=== PATIENT | female | born 1970 | race Two or more races ===

== ENCOUNTER 2020-07-22 15:35 | Emergency (ER) | payer OTHER ==
[~2020-07-22] VITALS: Ht 157.5 cm; Wt 59.0 kg
[2020-07-22 15:44] VITALS: BP 144/109
[2020-07-22 16:09] LABS: Urine Bacteria MANY /hpf (None Seen); Urine Blood Negative /uL (Negative); Urine Specific Gravity 1.007 (1.001-1.035); Urine WBC 19 /hpf (0 - 5)
[2020-07-22 16:37] LABS: Basophils # (auto) 0 10 ^3/uL (0-0.2); Basophils % (auto) 0.7 % (0.0-2.0); Eosinophils # (auto) 0.1 10 ^3/uL (0-0.8); Eosinophils % (auto) 1.8 % (0.0-7.0); Hematocrit 38.9 % (36.0-46.0); Hemoglobin 13.3 g/dL (12.2-16.2); Lymphocytes # (auto) 1.7 10 ^3/uL (0.4-5.4); Lymphocytes % (auto) 35.7 % (10.0-50.0); Mean Corpuscular Hemoglobin 30.8 pg (28.0-32.0); Mean Corpuscular Hgb Conc. 34.1 g/dL (32.0-36.0); Mean Corpuscular Volume 90.4 fL (80.0-100.0); Monocytes # (auto) 0.3 10 ^3/uL (0-1.3); Monocytes % (auto) 6.7 % (0.0-12.0); Neutrophils # (auto) 2.6 10 ^3/uL (1.6-8.6); Neutrophils % (auto) 55.1 % (37.0-80.0); Nucleated Red Blood Cells % 0.2 %; Platelet Count (auto) 263 10^3/uL (140-450); Red Blood Cells 4.31 10^6/uL (4.0-5.20); Red Cell Distribution Width 12.7 % (11.8-14.3); White Blood Cell 4.7 10^3/uL (4.4-10.8)
[2020-07-22 17:11] LABS: Alanine Aminotransferase 24 U/L (13-56); Albumin 4.2 g/dL (3.4-5.0); Anion Gap 4 (5-15); Blood Urea Nitrogen 16 mg/dL (7-18); Carbon Dioxide 27 mmol/L (21-32); Chloride 106 mmol/L (98-107); Glucose 92 mg/dL (74-106); Potassium 3.7 mmol/L (3.5-5.1); Sodium 137 mmol/L (136-145)
[2020-07-22 17:16] LABS: Alkaline Phosphatase 101 U/L (45-117); Aspartate Aminotransferase 22 U/L (15-37); GFR African American 97 mL/min; GFR Non-African American 80 mL/min; Total Protein 7.9 g/dL (6.4-8.2)
== END 2020-07-22 19:57 | disposition left against medical advice (07) ==
LOC: ER 15:35
DX: R07.89 Other chest pain (principal); Z53.21 Procedure and treatment not carried out due to patient leaving prior to being seen by health care provider
CPT/HCPCS: 36415; 80053; 81001; 84484; 85025; 93005

== ENCOUNTER 2024-09-21 11:55 | Emergency (ER) | payer OTHER ==
[~2024-09-21] VITALS: Ht 165.1 cm; Wt 69.4 kg
[2024-09-21] MEDS: ONDANSETRON HCL 4 MG/2 ML VIAL IV ONE (12:15)
[2024-09-21] MEDS: SODIUM CHLORIDE 0.9% 500 ML IVB ONE (12:15)
[2024-09-21] MEDS: PANTOPRAZOLE 40 MG/10 ML VIAL INJ IV ONE (12:15)
[2024-09-21] MEDS: MORPHINE SULFATE 4 MG/ML SYR/VIAL IV ONE (12:15)
--- NOTE | 2024-09-21 12:16 | ECG ---
[facility] Test Date: 2024-09-21 Test Time: 12:13:34 Pat Name: RODDY PHAN Department: ER Room: Gender: F Supervisor Advice: LUIS ALFREDO : 1970 Requested By: LUIS LUNA Order Number: [id number] Reading MD: Sourav Che Measurements Intervals [place] Rate: 87 P: 51 NV: 135 QRS: -11 QRSD: 97 T: -4 QT: 354 QTc: 426 Interpretive Statements Sinus rhythm Probable left atrial enlargement Borderline T abnormalities, inferior leads Electronically Signed On 09-23-2024 12:44:37 PST by Sourav Che Please click the below link to view image of tracing.
--- NOTE | 2024-09-21 13:20 | DVH ---
INDICATION: pain TECHNIQUE: Multiple real-time sonographic images were obtained of the right upper quadrant. COMPARISON: None FINDINGS: The liver demonstrates homogenous echotexture without focal mass lesions. The liver measure s 11.4 cm. Hyper echogenic focus within the right lobe near the hepatic dome measuring approximately 1.4 cm , does not demonstrate internal flow on color doppler. There is no intrahepatic or extrahepati c ductal dilatation. The common duct measures 6 mm. Multiple cholelithiasis and biliary sludge. The gallbladder wall measures 2 mm and is within normal limits. Insights Strategist notes a negative sonographic dillon's sign. The right kidney measures 8.4 cm. The right kidney is normal in contour, size, and shape. The echog enicity is normal. There is no hydronephrosis. The visualized portions of the pancreas appear grossly normal.. IMPRESSION: 1. CBD at upper limit of normal in diameter. 2. Cholelithiasis and biliary sludge with no sonographic evidence of acute cholecystitis. 3. Hyperechogenic lesion within the right lobe of the liver measuring 1.4 cm, could represent a heman gioma, focus of fatty infiltration, or other. If further imaging evaluation is warranted, dedicated l iver protocol CT may be useful. HS:Y
--- NOTE | 2024-09-21 14:12 | ED.PDOC ---
GI ASSESSMENT HPI Comments This is a 53-year-old female who comes in with chief complaint of abdominal pain. The patient states that the pain is somewhat epigastric in nature. The patient states that she has been having the pain off and on for approximately three months. The patient states that the pain is epigastric in nature and radiates towards the back. She states that the pain typically comes in after meals. She has also been having some black stools. Upon arrival, the patient's pain is a 7/10. She is having some nausea, vomiting as well as diarrhea. Upon arrival, the patient was somewhat tearful. Chief Complaint: Abdominal Pain Time Seen by MD: 12:08 Primary Care Provider: NONE Reviewed Notes: Nurses Notes, Medications, Allergies (No allergies to medi cations) Allergies: Coded Allergies: NO KNOWN ALLERGIES (Unverified , 07/22/20) Home Meds Active Scripts Ondansetron Odt 4MG Tab (ZOFRAN PO) 4 Mg Tb, 4 MG PO Q8HP PRN for 5 Days, #15 TAB ODT TAB-DISSOLVE IN MOUTH, THEN SWALLOW Prov:LUIS LUNA MD 09/21/24 Pantoprazole Sodium Sesquihydr (Protonix) 40 Mg Tab, 40 MG PO DAILY, #30 TAB Prov:LUIS LUNA MD 09/21/24 Information Source: Patient Mode of Arrival: Ambulatory Timing: Months Duration: Intermittent Prehospital treatment: NTG Quality: Burning, Sharp Vomitus: Bilious Stool: Watery, Black Severity: Moderate Recent: None Recent Hx of: None Pain Location: Epigastric Modifying Factors: Nothing Associated sign and symptoms: Nausea, Vomiting, Diarrhea, Abdominal Pain Past Medical History PAST MEDICAL HISTORY: Denies Surgical History (Other): Right foot surgery [employer]IE THE[employer] USHER History: No Pertinent [employer] THE[employer] USHER History Family History Family History: Family hx of Cancer Social History Smoker: Non-Smoker Alcohol: Denies ETOH Use Drugs: Denies Drug Use Lives In: Home Constitutional: denies: chills, diaphoresis, fatigue, fever, malaise, sweats, weakness, others EENTM: denies: blurred vision, double vision, ear bleeding, ear discharge, ear drainage, ear pain, ear ringing, eye pain, eye redness, hearing loss, mouth pain, mouth swelling, nasal discharge, nose bleeding, nose congestion, nose pain, photophobia, tearing, throat pain, throat swelling, voice changes, others Respiratory: denies: cough, hemoptysis, orthopnea, SOB at rest, shortness of breath, SOB with excertion, stridor, wheezing, others Cardiovascular: denies: chest pain, dizzy spells, diaphoresis, Dyspnea on exertion, edema, irregular heart beat, left arm pain, lightheadedness, palpitations, PND, syncope, others Gastrointestinal: reports: abdominal pain, diarrhea, nausea, vomiting; denies: abdomen distended, blood streaked bowels, constipated, dysphagia, difficulty swallowing, hematemesis, melena, poor appetite, poor fluid intake, rectal bleeding, rectal pain, others Genitourinary: denies: abnormal vagina bleeding, burning, dyspareunia, dysuria, flank pain, frequency, hematuria, incontinence, pain, , vagina discharge, urgency, others Neurological: denies: dizziness, fainting, headache, left sided numbness, left sided weakness, numbness, paresthesia, pre-existing deficit, right sided numbness, right sided weakness, seizure, speech problems, tingling, tremors, weakness, others Musculoskeletal: denies: back pain, gout, joint pain, joint swelling, muscle pain, muscle stiffness, neck pain, others Integumetry: denies: bruises, change in color, change in hair/nails, dryness, laceration, lesions, lumps, rash, wounds, others Allergic/Immunocompromised: denies: Difficulty Healing, Frequent Infections, Hives, Itching, others Hematologic/Lymphatic: denies: anemia, blood clots, easy bleeding, easy bruising, swollen glands, others Endocrine: denies: excessive hunger, excessive sweating, excessive thirst, excessive urination, flushing, intolerance to cold, intolerance to heat, unexplained weight gain, unexplained weight loss, others Psychiatric: denies: anxiety, bipolar disorder, depression, hopeless, panic dis order, schizophrenia, sleepless, suicidal, others Physical Exam General Appearance: Moderate Distress HEENT: Normal ENT Inspection, Pharynx Normal, TMs Normal Neck: Full Range of Motion, Non-Tender, Normal, Normal Inspection Respiratory: Chest Non-Tender, Lungs Clear, No Accessory Muscle Use, No Respiratory Distress, Normal Breath Sounds Cardiovascular: No Edema, No JVD, No Murmur, No Gallop, Normal Peripheral Pulses, Regular Rate/Rhythm Breast Exam: Deferred Gastrointestinal: Epigastric, No Organomegaly, No Pulsatile Mass, Normal Bowel Sounds, Soft, Tenderness Genitalia: Deferred Pelvic: Deferred Rectal: Deferred Extremities: No calf tenderness, Normal capillary refill, Normal inspection, Normal range of motion, Non-tender, No pedal edema Musculoskeletal : Apperance: Normal Neurologic: Alert, mica washer gluer II-XII nml as Tested, No Motor Deficits, Normal Affect, Normal Mood, No Sensory Deficits Cerebellar Function: Normal Reflexes: Normal Skin: Dry, Normal Color, Warm Lymphatic: No Adenopathy EKG EKG : Pulse Rate (adult): 87 [place]: Normal Cardiac Rhythm: NSR Hypertrophy: LAE ST: Nonsp Was a procedure done? Was a procedure done?: No GI differential Dx Differential Diagnosis: Cholangitis, Cholecystitis, Gastritis/PUD, Gastroenteritis, Inflammatory BD, Pancreatitis, Electrolyte Imbalance, Food Poisoning X-Ray, Labs, Meds, VS Vital Signs Date Time Temp Pulse Resp B/P (MAP) Pulse Ox O2 Delivery O2 Flow Rate FiO2 09/21/24 14:12 87 09/21/24 12:38 95 18 130/95 (107) 97 09/21/24 12:22 97.9 111 18 134/97 (109) 97 09/21/24 12:13 87 We ordered an IV Hep-Lock as well as pain medication with the patient states that she does not want it at this time. The patient also refused all lab work We did do an ultrasound of the gallbladder which shows: IMPRESSION: 1. CBD at upper limit of normal in diameter. 2. Cholelithiasis and biliary sludge with no sonographic evidence of acute cholecystitis. 3. Hyperechogenic lesion within the right lobe of the liver measuring 1.4 cm, could represent a hemangioma, focus of fatty infiltration, or other. If further imaging evaluation is warranted, dedicated liver protocol CT may be useful. HS:Y The patient states that she wants to just follow up with her primary care doctor We did tell her about the lesion also on the liver but she states that she will follow up at [place] We did give her a prescription for Protonix and Zofran The patient will return to the emergency department's the condition worsens. Images Reviewed?: Images reviewed and evaluated by me Time of 1ST Reevaluation: 14:10 Reevaluation 1ST: Improved Patient Education/Counseling: Diagnosis, Treatment, Prognosis, Need For Follow Up Family Education/Counseling: No Family Present Departure 1 Departure Time of Disposition: 14:11 Impression: Primary Impression: Acute abdominal pain Additional Impression: Cholelithiasis Qualified Codes: K80.20 - Calculus of gallbladder without cholecystitis without obstruction Disposition: HOME / SELF CARE / HOMELESS Condition: Fair e-Prescriptions Ondansetron Odt 4MG Tab (ZOFRAN PO) 4 Mg Tb 4 MG PO Q8HP PRN for 5 Days, #15 TAB ODT TAB-DISSOLVE IN MOUTH, THEN SWALLOW Prov: LUIS LUNA MD 09/21/24 Pantoprazole Sodium Sesquihydr (Protonix) 40 Mg Tab 40 MG PO DAILY, #30 TAB Prov: LUIS LUNA MD 09/21/24 Discharged With: Self Critical Care Note Critical Care Time?: No Stability Stability form required: No Heart Score Heart Score: Heart Score Response (Comments) Value History N/A 0 EKG N/A 0 Age N/A 0 Risk Factors N/A 0 Troponin N/A 0 Total 0 LUIS LUNA MD Sep 21, 2024 14:12
[2024-09-21] MEDS ORDERED: PANT40TA2 PO (14:13)
[2024-09-21] MEDS ORDERED: ZOFR4T PO (14:13)
[2024-09-21 14:43] VITALS: BP 124/83; PULSE 95; RESP 20; O2SAT 97
== END 2024-09-21 14:48 | disposition home or self-care (01) ==
LOC: ER 11:55
DX: K80.20 Calculus of gallbladder without cholecystitis without obstruction (principal); Z98.890 Other specified postprocedural states; Z79.899 Other long term (current) drug therapy
CPT/HCPCS: 76705; 93005